=== PATIENT | female | born 1995 | race Caucasian/White ===

== ENCOUNTER 2021-08-21 15:08 | Emergency (ER) | payer OTHER, SELFPAY ==
--- NOTE | ~2021-08-21 | US_ITS ---
EXAMINATION: ULTRASOUND PELVIC OVARIAN DOPPLER CLINICAL INFORMATION: Pelvic pain. Rule out torsion. History of cysts and fibroids. Last menstrual period 08/12/2021. COMPARISON: No similar priors. TECHNIQUE: Transabdominal and transvaginal images were obtained with grayscale, color and spectral Doppler. FINDINGS: The uterus is anteverted and anteflexed and measures 8.5 x 4.0 x 4.1 cm. No fibroids are identified. An IUD is in appropriate positioning within the endometrial canal. No focal endometrial abnormalities are identified. There is a small amount of simple fluid in the cervix which is likely physiologic. The right ovary measures 2.5 x 2.3 x 2.0 cm (volume of 6 mL) and the left ovary measures 3.1 x 2.0 x 3.0 cm (volume of 10 mL). There functional follicles in both ovaries without suspicious lesions. Flow to both ovaries is preserved on color and spectral Doppler in this examination. No free fluid. US/US pelvic ovarian doppler IMPRESSION: No acute sonographic abnormalities. Specifically, no evidence of ovarian torsion at this time. An IUD is in appropriate positioning within the endometrial canal.
--- NOTE | ~2021-08-21 | CT_ITS ---
EXAMINATION: CT ABDOMEN AND PELVIS WITH CONTRAST CLINICAL INFORMATION: Right lower quadrant pain. COMPARISON: No similar priors. TECHNIQUE: Multidetector volumetric images were obtained from the superior aspect of the liver through the pubic symphysis following administration 85 mL of Omnipaque 350 intravenous contrast. Sagittal and coronal reformatted images were obtained on the technologist's workstation. Oral contrast: No This CT examination was performed using dose optimization techniques as appropriate, variously including the following: *Automated exposure control *Adjustment of mA and/or kV according to patient size (this includes techniques or standardized protocols for targeted exams where dose is matched to indication/reason for exam; i.e. extremities or head) *Use of iterative reconstruction technique DLP: 1025 mGy-cm FINDINGS: LUNG BASES: There are several subcentimeter predominantly left sided pulmonary nodules. For instance, a 0.7 cm left lower lobe pulmonary nodule (4:25), 0.6 cm subpleural left lower lobe pulmonary nodule (4:72) and 0.7 cm left upper lobe pulmonary nodule (4:64). No focal consolidation or pleural effusion. Asymmetric elevation of the right hemidiaphragm is nonspecific but could be related with underlying hepatomegaly. LIVER, GALLBLADDER, AND BILIARY TREE: The liver measures 22.5 cm craniocaudal and there is significant decrease parenchymal attenuation when compared to the spleen, suggesting the presence of hepatic steatosis. Otherwise, the liver is normal in shape without suspicious focal abnormalities. The gallbladder is within normal limits. There is no biliary ductal dilatation. PANCREAS: Unremarkable. SPLEEN: Unremarkable. ADRENAL GLANDS: Unremarkable. KIDNEYS AND URETERS: The kidneys are normal in size, shape, and attenuation. No hydronephrosis, hydroureter, or calculi seen. No perinephric stranding. BLADDER: Unremarkable. GASTROINTESTINAL TRACT: The stomach and the small bowel are nondilated. Normal appendix. Mild diverticulosis. No bowel obstruction or active pericolic inflammatory changes. ABDOMINAL WALL: No significant hernia is appreciated. LYMPH NODES: Prominent nonspecific mesenteric lymph nodes, measuring up to 0.7 cm short axis. No lymphadenopathy by size criteria. VASCULAR: Unremarkable. PELVIC VISCERA: IUD in place. Functional follicles in both ovaries. Trace free fluid which is likely physiologic. OSSEOUS STRUCTURES: No acute or aggressive osseous abnormalities. CT/CT abdomen pelvis w con IMPRESSION: Hepatomegaly and hepatic steatosis. Mild diverticulosis. Prominent nonspecific mesenteric lymph nodes. Indeterminate pulmonary nodules, largest measuring 0.7 cm. In patients younger than age 35, standard Fleischner Society recommendations for incidental pulmonary nodule follow-up do not apply as nodules in this age group are most likely to be infectious/inflammatory. Recommend clinical correlation with any risk factors to assess if follow-up of these nodules is clinically warranted.
[2021-08-21 15:10] VITALS: BP 153/92; PULSE 76; RESP 20; TEMP 36.6; O2SAT 99; BMI 36.9
--- NOTE | 2021-08-21 16:58 | ED_ITS ---
HPI - Abdominal Pain General Chief Complaint: Abdominal Pain Stated Complaint: ovary pain Time Seen by Provider: 08/21/21 16:56 Source: patient Mode of arrival: ambulatory Limitations: no limitations History of Present Illness HPI narrative: 25 year old female past medical history significant for ovarian cysts and fibroid presents to the ED with pelvic pain and RLQ abdominal pain X1 month, worsening over the past 5 days. Patient tells me she gets recurrent fibroids and cysts that usually cause her pain. She is followed by [facility], where she frequently gets ultrasounds and STD testing. She tells me she has not been sexually active lately as she has in a long distance relationship. She denies previous STD/STI history. She does tell me though she is having pelvic pain but denies vaginal bleeding or discharge. No dysuria, urinary frequency or urgency. She denies fevers, chills, vomiting, chest pain, shortness of breath. She tells me that she has a family history of ovarian cancer MD elicited complaint: abdominal pain Pertinent past history: none Onset (ago): day(s) (5) Pain Consistency: constant Location: RLQ and pelvis Severity: severe Pain scale (0-10): 10 Quality: stabbing Radiation: none Migration to: no migration Exacerbating factors: nothing Relieving factors: nothing Associated symptoms: nausea Related Data Previous Rx's Medication Instructions Recorded metronidazole 500 mg tablet 500 mg PO BID 7 Days #14 tab 08/21/21 Allergies Allergy/AdvReac Type Severity Reaction Status Date / Time nickel Allergy Hives Verified 08/21/21 15:17 Review of Systems Review of Systems Constitutional : No Fever, No Chills ENT/Mouth : No sore throat, No Rhinorrhea Eyes: No Eye Pain, No Redness Cardiovascular : No Chest Pain, No SOB Respiratory : No Cough, No Sputum, No Wheezing Gastrointestinal : positive Nausea, No Vomiting, No Diarrhea, positive abdominal pain, Genitourinary : No irregular bleeding, No Dysuria, No Urinary Frequency, positive pelvic pain Musculoskeletal : No Myalgias Skin : No rash Neuro : No Weakness, No Headache Psych : No Anxiety/Panic, No Depression All other systems reviewed and are negative Yes all other systems are reviewed and are negative Physical Exam Verdana 4l Vital Signs: Verdana 4d Verdana 4d Vital Signs: Verdana 4d Verdana 4Bd Last Vital Signs Verdana 4d Land Surveyor Manager New 4d Land Surveyor Manager New 4d Temp 98.4 F 08/21/21 19:42 Land Surveyor Manager New 4d Pulse 82 08/21/21 19:42 Land Surveyor Manager New 4d Resp 16 08/21/21 19:42 BP 110/54 L 08/21/21 19:42 Pulse Ox 98 08/21/21 19:42 BMI result Body Mass Index 36.9 VSS Appearance: Alert.? Oriented X3.? No acute distress.? Head: Normocephalic, atraumatic, no step-offs or deformities Eyes: Pupils equal, round and reactive to light.? ENT: Pharynx normal.? Neck: Normal inspection.? Neck supple.? CVS: Normal heart rate and rhythm.? Pulses normal.? Respiratory: No respiratory distress.? Breath sounds normal.? Abdomen: Soft and +pain to right lower quadrant.? Sensitive Exam: patient did not tolerate pelvic exam there was white thin discharge noted tht was foul smelling, likely BV. Skin: Skin warm and dry.? Normal skin color.? Normal skin turgor.? Extremities: No lower extremity edema.? No calf ttp. 5/5 strength to bilateral upper and lower extremities Back: No midline tenderness, no C-spine tenderness, full range of motion, no CVA tenderness bilaterally Neuro: Oriented X 3.? No motor deficit.? No sensory deficit. Course Reevaluation(s) Reevaluation #1: Patient did not tolerate pelvic exam there was white thin discharge noted tht was foul smelling, likely BV. Sent swabs for NG CT, BV and trich. Abdominal CT pending. Spoke about treating patient prophylactically for gonorrhea and Chlamydia, she tells me she does not think she has these she will wait for test results and then get treatment if needed. Time: 18:45 Reevaluation #2: US WNL. Trich and yeast negative. Abdominal CT w/ hepatic steatosis, mild dive rticulitis, and pulmonary nodules. I have reviewed these findings with the patient as well as US results. At this time patient will be DC home with TX for BV. Patient reports pain improved w/ toradol. Patient will follow up with OBGYN heather and follow up with PCP. I feel comfortable with DC Time: 19:23 MDM - Abdominal Pain MDM Narrative Medical decision making narrative: 170 25 yo f pmhx recurrent ovarian cysts and fibroids presents to ED w/ complaints of pelvic pain and RLQ abdominal/ovarian pain PE- benign, sensitive exam will be done after. Plan- US, Labs, NG CT, UA, Pelvic exam Medical Records Attestation: I reviewed the patient's medical records. Lab Data Attestation: I reviewed the patient's lab results. Result diagrams: 08/21/21 18:03 08/21/21 18:03 Labs: Lab Results 08/21/21 08/21/21 08/21/21 Range/Units 18:03 18:03 18:03 WBC 7.6 (4.8-10.8) X10*3/uL RBC 4.57 (4.20-5.50) X10*6/uL Hgb 12.2 (12.0-16.0) g/dl Hct 37.0 (37.0-47.0) % MCV 81.0 (80.0-98.0) fL MCH 26.7 L (27.0-33.0) pg MCHC 33.0 (31.0-35.0) g/dl RDW 13.1 (11.0-16.0) % Plt Count 369 (160-400) X10*3/uL MPV 9.1 L (9.4-12.3) fL Immature Gran % (Auto) 0.1 (0.0-0.4) % Neut % (Auto) 61.7 (45-73) % Lymph % (Auto) 26.8 (20-40) % Bonner % (Auto) 7.7 (2-11) % Eos % (Auto) 3.3 (0-4) % Baso % (Auto) 0.4 (0-2) % Lymph # (Auto) 2.0 (1.2-4.9) X10*3/uL Bonner # (Auto) 0.6 (0.1-1.2) X10*3/uL Eos # (Auto) 0.3 (0.0-0.4) X10*3/uL Baso # (Auto) 0.0 (0.0-0.2) X10*3/uL Abs Immat Gran (auto) 0.01 (0.00-0.03) X10*3/uL Absolute Neuts (auto) 4.7 (2.0-8.3) x10*3/uL Absolute Nucleated RBC 0.000 (0.0-0.012) X10*3/uL Nucleated RBC % (auto) 0.0 (0.0-0.2) /100WBC Sodium 138 (135-145) mmol/L Potassium 3.8 (3.3-5.1) mmol/L Chloride 103 (96-108) mmol/L Carbon Dioxide 26 (22-29) mmol/L Anion Gap 13 (12-20) BUN 11 (9-16) mg/dL Creatinine 0.80 (0.5-1.4) mg/dL Estim Creat Clear Calc 155.0 Estimated GFR > 60 Random Glucose 86 (60-115) mg/dL Calcium 9.7 (8.4-10.2) mg/dL Total Bilirubin 0.7 (0.0-1.0) mg/dL AST 20 (5-31) U/L ALT 28 (0-31) U/L Alkaline Phosphatase 55 (39-117) U/L Total Protein 7.9 (6.5-8.0) g/dL Albumin 4.4 (3.5-5.0) g/dL Lipase 12 (8-78) U/L Beta HCG, Quant < 2 mIU/mL Urine Color Urine Appearance Urine pH (5.0-8.0) Ur Specific [place] (1.005-1.025) Urine Protein (NEG-TRACE) MG/DL Urine Glucose (UA) (NEG) MG/DL Urine Ketones (NEG) MG/DL Urine Blood (NEG) Urine Nitrite (NEG) Ur Leukocyte Esterase (NEG) COVID-19 (ADEN) Negative (Negative) COVID-19 Clin Com See Note 08/21/21 Range/Units 18:47 WBC (4.8-10.8) X10*3/uL RBC (4.20-5.50) X10*6/uL Hgb (12.0-16.0) g/dl Hct (37.0-47.0) % MCV (80.0-98.0) fL MCH (27.0-33.0) pg MCHC (31.0-35.0) g/dl RDW (11.0-16.0) % Plt Count (160-400) X10*3/uL MPV (9.4-12.3) fL Immature Gran % (Auto) (0.0-0.4) % Neut % (Auto) (45-73) % Lymph % (Auto) (20-40) % Bonner % (Auto) (2-11) % Eos % (Auto) (0-4) % Baso % (Auto) (0-2) % Lymph # (Auto) (1.2-4.9) X10*3/uL Bonner # (Auto) (0.1-1.2) X10*3/uL Eos # (Auto) (0.0-0.4) X10*3/uL Baso # (Auto) (0.0-0.2) X10*3/uL Abs Immat Gran (auto) (0.00-0.03) X10*3/uL Absolute Neuts (auto) (2.0-8.3) x10*3/uL Absolute Nucleated RBC (0.0-0.012) X10*3/uL Nucleated RBC % (auto) (0.0-0.2) /100WBC Sodium (135-145) mmol/L Potassium (3.3-5.1) mmol/L Chloride (96-108) mmol/L Carbon Dioxide (22-29) mmol/L Anion Gap (12-20) BUN (9-16) mg/dL Creatinine (0.5-1.4) mg/dL Estim Creat Clear Calc Estimated GFR Random Glucose (60-115) mg/dL Calcium (8.4-10.2) mg/dL Total Bilirubin (0.0-1.0) mg/dL AST (5-31) U/L ALT (0-31) U/L Alkaline Phosphatase (39-117) U/L Total Protein (6.5-8.0) g/dL Albumin (3.5-5.0) g/dL Lipase (8-78) U/L Beta HCG, Quant mIU/mL Urine Color YELLOW Urine Appearance CLEAR Urine pH 5.5 (5.0-8.0) Ur Specific [place] >= 1.030 H (1.005-1.025) Urine Protein TRACE (NEG-TRACE) MG/DL Urine Glucose (UA) NEG (NEG) MG/DL Urine Ketones NEG (NEG) MG/DL Urine Blood NEG (NEG) Urine Nitrite NEG (NEG) Ur Leukocyte Esterase NEG (NEG) COVID-19 (ADEN) (Negative) COVID-19 Clin Com Imaging Data US doppler ovarian: Attestation: I personally reviewed and interpreted this imaging study as follows: Radiologist's impression: US/US pelvic ovarian doppler IMPRESSION: No acute sonographic abnormalities. Specifically, no evidence of ovarian torsion at this time. ? An IUD is in appropriate positioning within the endometrial canal. Critical Care Time Critical Care Time Critical Care Time: No Discharge Plan Discharge Clinical Impression: Pelvic pain, Abdominal pain, Vaginal discharge, Pulmonary nodule, Fatty liver Patient Disposition: Home, Self-Care Instructions: Abdominal Pain (ED), Pelvic Pain (ED), Vaginal Discharge (ED) Additional Instructions: Take your medications as prescribed. If you were prescribed antibiotics today, it is important that you take your medication to their entirety, do not skip any doses, do not finish them early. Follow-up with your primary care provider this week. Return to the emergency department with new or worsening symptoms. In case of emergency call 911 Metronidazole to treat for BV based off of my exam. Please follow up with OBGYN. Take ibuprofen every 6 hours tylenol every 4 hours. US: US/US pelvic ovarian doppler IMPRESSION: No acute sonographic abnormalities. Specifically, no evidence of ovarian torsion at this time. ? An IUD is in appropriate positioning within the endometrial canal. CT abdomen: CT/CT abdomen pelvis w con IMPRESSION: ? Hepatomegaly and hepatic steatosis. ? Mild diverticulosis. ? Prominent nonspecific mesenteric lymph nodes. ? Indeterminate pulmonary nodules, largest measuring 0.7 cm. In patients younger than age 35, standard Fleischner Society recommendations for incidental pulmonary nodule follow-up do not apply as nodules in this age group are most likely to be infectious/inflammatory. Recommend clinical correlation with any risk factors to assess if follow-up of these nodules is clinically warranted. Prescriptions: New metronidazole 500 mg tablet 500 mg PO BID 7 Days Qty: 14 0RF Referrals: Maryann Stevenson PA [Primary Care Provider] - 2 days Stand Alone Forms: Work/School Release [facility] Past Medical History Attestation statement: The following information was validated with the patient. Source: old records reviewed and nursing notes reviewed Medical History Anxiety Fibroid of cervix Fibroid of cervix Social History Social History Alcohol intake: unknown Patient Tobacco Use Status: Tobacco use Unknown Use of substances other than those prescribed or required for medical reasons: Unknown Advance Directives: No Advance Directives Information Provided: No Patient : No
[2021-08-21 17:08] VITALS: BP 120/71; PULSE 70; RESP 16; TEMP 36.8; O2SAT 98
[2021-08-21 18:10] LABS: MANUAL DIFF FLAG NO
[2021-08-21 18:12] LABS: Basophils Percent Auto 0.4 % (0-2); Eosinophils Absolute Auto 0.3 X10*3/uL (0.0-0.4); Eosinophils Percent Auto 3.3 % (0-4); Hemoglobin 12.2 g/dl (12.0-16.0); Imm Gran Abs Auto 0.01 X10*3/uL (0.00-0.03); Imm Gran Pct Auto 0.1 % (0.0-0.4); Lymphocytes Percent Auto 26.8 % (20-40); Mean Corpuscular Hemoglobin 26.7 pg (27.0-33.0); Mean Platelet Volume 9.1 fL (9.4-12.3); Monocytes Absolute Auto 0.6 X10*3/uL (0.1-1.2); Monocytes Percent Auto 7.7 % (2-11); Neutrophils Absolute Auto 4.7 x10*3/uL (2.0-8.3); Neutrophils Percent Auto 61.7 % (45-73); Platelet Count 369 X10*3/uL (160-400); Red Blood Count 4.57 X10*6/uL (4.20-5.50); Red Cell Distribution Width 13.1 % (11.0-16.0); White Blood Count 7.6 X10*3/uL (4.8-10.8)
[2021-08-21 18:31] LABS: Alanine Aminotransferase 28 U/L (0-31); Albumin Level 4.4 g/dL (3.5-5.0); Alkaline Phosphatase 55 U/L (39-117); Anion Gap 13 (12-20); Aspartate Amino Transferase 20 U/L (5-31); Bilirubin Total 0.7 mg/dL (0.0-1.0); Blood Urea Nitrogen 11 mg/dL (9-16); Calcium 9.7 mg/dL (8.4-10.2); Carbon Dioxide 26 mmol/L (22-29); Chloride 103 mmol/L (96-108); Estimated Glomerular Filt Rate > 60; Glucose Random 86 mg/dL (60-115); Potassium 3.8 mmol/L (3.3-5.1); Sodium 138 mmol/L (135-145); Total Protein 7.9 g/dL (6.5-8.0)
[2021-08-21 18:45] VITALS: BP 110/54; PULSE 82; RESP 16; TEMP 36.9; O2SAT 98
--- NOTE | 2021-08-21 18:45 | PC.NURSE ---
assist jhon armendariz with patient pelvic exam .
[2021-08-21 18:47] LABS: Lipase 12 U/L (8-78)
[2021-08-21 18:50] LABS: COVID-19 Test Negative (Negative); IDNOW Serial# 08D9AD1C
[2021-08-21 18:53] LABS: HCG Quantitative < 2 mIU/mL
[2021-08-21 18:54] LABS: Appearance Urine CLEAR; Color Urine YELLOW; Glucose Urine UA NEG (NEG); Leukocyte Esterase Urine NEG (NEG); Nitrite Urine NEG (NEG); PH 5.5 (5.0-8.0); Specific Gravity - Urine >= 1.030 (1.005-1.025); Urine Blood NEG (NEG); Urine Ketones NEG (NEG); Urine Protein TRACE MG/DL (NEG-TRACE)
[2021-08-21 19:42] VITALS: BP 110/54; PULSE 82; RESP 16; TEMP 36.9; O2SAT 98
[2021-08-21] MEDS: Ketorolac Tromethamine 30 MG/ML VIAL IM (19:46)
[2021-08-21] MEDS: iohexoL 350 MG/ML 100 ML INFUS..BTL IV (20:16)
[2021-08-22 03:55] LABS: CT PCR NOT DETECTED (Not Detect.)
[2021-08-22 03:56] LABS: NG PCR NOT DETECTED (Not Detect.)
[2021-08-22 12:28] LABS: BV Int Neg Control Negative (Negative); BV Int Pos Control Positive (Positive)
== END 2021-08-21 21:59 | disposition home or self-care (01) ==
PROVIDERS: Physician Assistant; Emergency Provider Emergency Medicine Emergency Medical Services; PCP Physician Assistant Medical
DX: R10.2 Pelvic and perineal pain (principal); R10.9 Unspecified abdominal pain; N89.8 Other specified noninflammatory disorders of vagina; Z20.822 Contact with and (suspected) exposure to COVID-19; R91.1 Solitary pulmonary nodule; K76.0 Fatty (change of) liver, not elsewhere classified
CPT/HCPCS: 36415; 74177; 80053; 81003; 83690; 84702; 85025; 87480; 87491; 87510; 87591; 87635; 87660; 93975; 96372; 99284; J1885; Q9967